=== PATIENT | female | born 1930 | race Caucasian/White ===

== ENCOUNTER → 2017-04-30 | Outpatient (CLI) | payer MEDICARE, OTHER ==
[~2017-04-30] MED LIST: ACIDOPHILUS1 EAC2 PO; Adult Low Dose81 MG PO; CEPH500 PO; FLONASE ALLERG9.9 ML NS; Vitamin D400 UNI1 PO
== END | disposition home or self-care (01) ==
LOC: LAB SHORT → PLD
DX: L30.8 Other specified dermatitis (principal); L92.9 Granulomatous disorder of the skin and subcutaneous tissue, unspecified
CPT/HCPCS: 88305